=== PATIENT | female | born 1965 | race Caucasian/White ===

== ENCOUNTER 2019-02-11 14:08 | Emergency (ER) | payer OTHER ==
[~2019-02-11] VITALS: Ht 165.1 cm; Wt 90.7 kg
[2019-02-11] MEDS ORDERED: LASIX 20 MG TAB20 MG PO (18:00)
[2019-02-11 18:04] VITALS: BP 135/79
== END 2019-02-11 18:06 | disposition home or self-care (01) ==
LOC: ER 14:08
DX: M79.661 Pain in right lower leg (principal); F17.210 Nicotine dependence, cigarettes, uncomplicated; Z88.2 Allergy status to sulfonamides; Z88.0 Allergy status to penicillin

== ENCOUNTER 2019-07-15 14:11 | Emergency (ER) | payer OTHER ==
[~2019-07-15] VITALS: Ht 162.6 cm; Wt 86.2 kg
--- NOTE | ~2019-07-15 | EKG ---
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
[~2019-07-15 14:11] MED LIST: LASIX 20 MG TAB20 MG PO
[2019-07-15] MEDS ORDERED: WELLBUTRIN 75 M75 M1 PO (14:30)
[2019-07-15] MEDS ORDERED: KEFLEX500 M1 PO (14:30)
[2019-07-15 14:46] LABS: ABSOLUTE NEUTROPHILS 5.6 thou/uL (1.4-8.2); BASOPHILS 0.9 % (0.0-2.0); EOSINOPHILS 3.3 % (0.0-3.0); HEMATOCRIT 41.7 % (37.0-47.0); HEMOGLOBIN 14.1 gm/dL (12.0-15.0); LYMPHOCYTES 20.6 % (24.0-44.0); MCH 30.8 pg (26.0-34.0); MCHC 33.7 g/dL (28.0-37.0); MCV 91.5 fL (80.0-100.0); MONOCYTES 9.8 % (1.0-8.0); PLATELET COUNT 315 thou/uL (150-400); POLYS 65.4 % (36.0-66.0); RBC 4.56 mil/uL (4.20-5.00); RDW 13.5 % (10.5-14.5); WBC 8.5 thou/uL (4.0-11.0)
[2019-07-15 14:57] LABS: ANION GAP 11 mmol/L (7-16); BUN 13 mg/dL (7-18); CALCIUM 8.9 mg/dL (8.5-10.1); CHLORIDE 101 mmol/L (98-107); CO2 25 mmol/L (21-32); CREATININE 0.8 mg/dL (0.6-1.0); GLUCOSE 94 mg/dL (74-106); POTASSIUM 3.9 mmol/L (3.5-5.1); SODIUM 137 mmol/L (136-145)
[2019-07-15 15:08] LABS: DIRECT BILIRUBIN 0.1 mg/dL (<0.1-0.2); LIPASE 136 U/L (73-393); SGOT 25 U/L (15-37); SGPT 31 U/L (30-65); TOTAL BILIRUBIN 0.5 mg/dL (<0.1-1.0); TOTAL PROTEIN 7.6 g/dL (6.4-8.2); TROPONIN-I <0.06 ng/mL (<0.06)
[2019-07-15 15:42] VITALS: BP 130/71
== END 2019-07-15 15:42 | disposition home or self-care (01) ==
LOC: ER 14:11
PROVIDERS: Emergency Medicine
DX: R06.02 Shortness of breath (principal); F17.210 Nicotine dependence, cigarettes, uncomplicated; F41.9 Anxiety disorder, unspecified; Z88.0 Allergy status to penicillin; Z88.2 Allergy status to sulfonamides

== ENCOUNTER → 2019-12-04 | Outpatient (CLI) | payer OTHER ==
[~2019-12-04] MED LIST changes: +KEFLEX500 M1 PO; +WELLBUTRIN 75 M75 M1 PO
== END ==
LOC: RAD 13:15
PROVIDERS: ATTEND Nurse Practitioner
DX: M79.642 Pain in left hand (principal)

== ENCOUNTER → 2020-01-07 | Outpatient (CLI) | payer OTHER | LOC: RAD 15:08 | PROVIDERS: ATTEND Nurse Practitioner | DX: Z12.31 Encounter for screening mammogram for malignant neoplasm of breast (principal) ==